=== PATIENT | female | born 2000 | race Caucasian/White ===

== ENCOUNTER 2019-07-01 10:59 | Emergency (ER) | payer SELFPAY ==
[~2019-07-01] VITALS: Ht 147.3 cm; Wt 64.4 kg
[2019-07-01 11:15] VITALS: Ht 147.3 cm; Wt 64.4 kg
[2019-07-01 11:54] LABS: microscopic required? NO
[2019-07-01 13:11] LABS: urine erythrocyte NEGATIVE (NEGATIVE)
[2019-07-01 15:28] VITALS: BP 110/50
== END 2019-07-01 15:28 | disposition home or self-care (01) ==
LOC: ED 10:59
PROVIDERS: Emergency Medicine
DX: O26.892 Other specified pregnancy related conditions, second trimester (principal); R10.9 Unspecified abdominal pain; Z3A.18 18 weeks gestation of pregnancy; V43.62XA Car passenger injured in collision with other type car in traffic accident, initial encounter; Y93.89 Activity, other specified; Y92.488 Other paved roadways as the place of occurrence of the external cause; Y99.8 Other external cause status